=== PATIENT | male | born 1995 | race Caucasian/White ===

== ENCOUNTER 2020-12-09 03:37 | Emergency (ER) | payer OTHER ==
[~2020-12-09] VITALS: Ht 172.7 cm; Wt 78.5 kg
[2020-12-09 03:40] VITALS: BP_SYST 125
[2020-12-09] MEDS: ASPIRIN 81 MG TAB.CHEW PO ONE (04:02)
[2020-12-09 04:18] LABS: BASOPHILS # (AUTO) 0.1 K/uL (0.0-0.2); BASOPHILS % (AUTO) 0.9 % (0.0-2.0); EOSINOPHILS # (AUTO) 0.2 K/uL (0.0-0.4); HEMATOCRIT 41.6 % (36-54); HEMOGLOBIN 14.6 g/dL (14.0-18.0); LYMPHOCYTES % (AUTO) 30.3 % (20.5-51.5); MEAN CORPUSCULAR HEMOGLOBIN 31 pg (27-31); MEAN CORPUSCULAR HGB CONC 35 % (32-36); MEAN CORPUSCULAR VOLUME 89 fL (79.0-98.0); MONOCYTES # (AUTO) 0.5 K/uL (0.0-1.0); MONOCYTES % (AUTO) 8.1 % (1.7-9.3); NEUTROPHILS # (AUTO) 3.9 K/uL (1.8-7.7); NEUTROPHILS % (AUTO) 57.7 % (40.0-70.0); PLATELET COUNT (AUTO) 244 K/uL (130-430); RED BLOOD CELL COUNT(AUTO) 4.66 MIL/uL (4.2-6.2); RED CELL DISTRIBUTION WIDTH 12.6 % (9.0-15.0); WHITE BLOOD COUNT (AUTO) 6.7 K/uL (4.8-10.8)
[2020-12-09 04:29] LABS: BARBITURATE, URINE NEGATIVE (NEG <=200); BENZODIAZEPINE, URINE NEGATIVE (NEG <=150); CALCIUM 8.3 mg/dL (8.4-11.0); CANNABINOID, URINE POSITIVE (NEG <=50); COCAINE, URINE NEGATIVE (NEG <=150); CREATININE 1.22 mg/dL (0.55-1.30); METHAMPHETAMINES SCREEN,URINE NEGATIVE (NEG <=500); OPIATE, URINE NEGATIVE (NEG <=100); PHENCYCLIDINE SCREEN,URINE NEGATIVE (NEG <=25); POTASSIUM 3.3 mmol/L (3.5-5.1); UR TRICYCLIC ANTIDEPRESSANTS NEGATIVE (NEG <=300); URINE AMPHETAMINE NEGATIVE (NEG <=500); URINE METHADONE NEGATIVE (NEG <=200); URINE OXYCODONE SCREEN NEGATIVE (NEG <=100); URINE PROPOXYPHENE SCREEN NEGATIVE (NEG <=300)
[2020-12-09 04:36] LABS: TOTAL BILIRUBIN 0.7 mg/dL (0.0-1.0)
[2020-12-09] MEDS: KETOROLAC TROMETHAMINE 30 MG VIAL IVP ONE (06:21)
[2020-12-09] MEDS ORDERED: IBUP-1971 PO (07:35)
[2020-12-09 08:21] VITALS: BP_SYST 124
== END 2020-12-09 07:45 | disposition home or self-care (01) ==
LOC: SED 03:37
DX: R07.89 Other chest pain (principal); Z79.899 Other long term (current) drug therapy
CPT/HCPCS: 36415; 71045; 80053; 80307; 82550; 83880; 84484; 85025; 85379; 93005; 96374; 99285; J1885

== ENCOUNTER 2021-04-08 09:43 | Emergency (ER) | payer OTHER ==
[~2021-04-08] VITALS: Ht 172.7 cm; Wt 77.1 kg
[2021-04-08 09:43] VITALS: BP_SYST 122
[~2021-04-08 09:43] MED LIST: IBUP-1971 PO
--- NOTE | 2021-04-08 09:43 | NUR ---
BROUGHT BACK TO BED #8 AND TRIAGED. REPORT GIVEN TO MIGUE
--- NOTE | 2021-04-08 09:54 | NUR ---
PT CAME INTO ER C/O RECTAL BLEEDING THIS AM, DARK RED, MODERATE AMOUNT AT HOME. REPORTS THAT HE HAS HAD BLEEDING X 3 WEEKS BUT HAS BEEN SEEING A MANUFACTURER. PT ALSO REPORTS A HX OF HEMRROIDS. STATES HE IS ALSO HAVING PAIN IN THE RECTAL AREA. PT IS AMBULATORY, AAOX4, V/S STABLE
--- NOTE | 2021-04-08 10:00 | NUR ---
AT THE BEDSIDE WITH DR. TANNER FOR RECTAL EXAM. PT TOLERATED WELL
--- NOTE | 2021-04-08 10:10 | NUR ---
LAB AT THE BEDSIDE FOR BLOOD DRAW
[2021-04-08 10:36] LABS: ANION GAP 7 (5-15); CALCIUM 8.3 mg/dL (8.4-11.0); CHLORIDE 106 mmol/L (98-107); CREATININE 0.99 mg/dL (0.55-1.30); GLUCOSE 87 mg/dL (70-99); SODIUM SERUM 139 mmol/L (136-145); UREA NITROGEN, BLOOD 15 mg/dL (8-21)
[2021-04-08 10:38] LABS: PROTHROMBIN TIME 10.2 SECS (9.5-12.5)
[2021-04-08 10:41] LABS: GFR AFRICAN AMERICAN 118 mL/min (>90)
[2021-04-08 10:49] LABS: ALANINE AMINOTRANSFERASE 19 U/L (12-78); ALBUMIN 3.9 g/dL (3.4-4.8); ASPARTATE AMINOTRANSFERASE 11 U/L (10-37); BILIRUBIN,DIRECT < 0.1 mg/dL (0.0-0.3); LIPASE 74 U/L (73-393); TOTAL BILIRUBIN 0.3 mg/dL (0.0-1.0)
--- NOTE | 2021-04-08 11:00 | NUR ---
PT RESTING IN BED, NO DISTRESS, AWAKE, ALERT, EVEN UNLABORED RESPIRATIONS
[2021-04-08 11:11] LABS: BASOPHILS % (AUTO) 0.6 % (0.0-2.0); EOSINOPHILS # (AUTO) 0.2 K/uL (0.0-0.4); EOSINOPHILS % (AUTO) 2.8 % (0.0-4.0); HEMATOCRIT 36.7 % (36-54); HEMOGLOBIN 13.2 g/dL (14.0-18.0); LYMPHOCYTES % (AUTO) 17.4 % (20.5-51.5); MEAN CORPUSCULAR HEMOGLOBIN 32 pg (27-31); MEAN CORPUSCULAR HGB CONC 36 % (32-36); MEAN CORPUSCULAR VOLUME 89 fL (79.0-98.0); MONOCYTES # (AUTO) 0.4 K/uL (0.0-1.0); MONOCYTES % (AUTO) 6.2 % (1.7-9.3); NEUTROPHILS # (AUTO) 4.3 K/uL (1.8-7.7); PLATELET COUNT (AUTO) 242 K/uL (130-430); RED BLOOD CELL COUNT(AUTO) 4.15 MIL/uL (4.2-6.2); WHITE BLOOD COUNT (AUTO) 5.8 K/uL (4.8-10.8)
[2021-04-08 11:31] VITALS: BP_SYST 122
--- NOTE | 2021-04-08 11:32 | NUR ---
Patient given written and verbal discharge instructions and verbalizes understanding. ER MD discussed with patient the results and treatment provided. Patient in stable condition. ID arm band removed. NO Rx given. Patient educated on pain management and to follow up with PMD. Pain Scale 0/10. Opportunity for questions provided and answered. Medication side effect fact sheet provided.
== END 2021-04-08 11:32 | disposition home or self-care (01) ==
LOC: SED 09:43
DX: K64.4 Residual hemorrhoidal skin tags (principal); K92.1 Melena
CPT/HCPCS: 36415; 80048; 80076; 83690; 85025; 85610-TC; 99283